=== PATIENT | male | born 1960 | race Caucasian/White ===

== ENCOUNTER 2017-06-01 07:57 | Day surgery (SDC) | payer OTHER ==
--- NOTE | 2017-05-25 19:51 | HP ---
PREOPERATIVE HISTORY AND PHYSICAL: DATE OF SURGERY/ADMISSION: 06/01/17 DATE OF OFFICE VISIT/ENCOUNTER: 05/17/17 ATTENDING SURGEON: Korina Degroot MD * (DICTATED BY PABLO SEGURA) PROCEDURE: Right ring finger trigger finger release. CHIEF COMPLAINT: Right ring finger triggering. HISTORY OF PRESENT ILLNESS: This is a 56-year-old male who complains of triggering and locking of the right ring finger for over a year now. He gets regular catching and clicking and often times, his finger is actually locked in a flex position particularly in the morning. It is quite painful for him to return it to an extended position. He has had a couple of cortisone injections over this past year, which were helpful; however, the symptoms invariably returned. At this point, he is looking for a more permanent solution for this problem and has consented to proceed with a right ring finger trigger finger release. PAST MEDICAL HISTORY: 1. Hypercholesterolemia. 2. Hiatal hernia. PAST SURGICAL HISTORY: 1. Rhinoplasty. 2. Vasectomy. 3. LASIK surgery. CURRENT MEDICATIONS: 1. Claritin 10 mg daily p.r.n. 2. Fish oil 12,000 mg daily. 3. Glucosamine chondroitin twice a day. 4. Simvastatin 40 mg daily. 5. Tylenol p.r.n. pain. 6. Vitamin C 500 mg 1 tab every day. 7. Vitamin D. ALLERGIES: NSAIDs cause uvula swelling. FAMILY MEDICAL HISTORY: Diabetes and hypertension. SOCIAL HISTORY: The patient is an automated optical inspection cuprous chloride operator. He denies tobacco use and recreational drug use. He does drink alcohol on regular occasion. REVIEW OF SYSTEMS: General: Negative for fevers, chills, or night sweats. No known anesthesia problems. HEENT: Negative for headache, lightheadedness, or syncopal episodes. Integumentary: Negative for abrasions, lesions, or open wounds. Cardiothoracic: Negative for hypertension, chest pain, palpitations, or edema. Pulmonary: Negative for shortness of breath with exertion, chronic cough, COPD. GI: Negative for nausea, vomiting, diarrhea, constipation, and GERD. : Negative for nocturia, urinary frequency, urgency, history of UTIs, and kidney problems. Musculoskeletal: Positive for current complaint. Neurological: Negative for paresthesias, numbness, history of seizure, stroke, or epilepsy. Endocrine: Negative for diabetes and thyroid issues. Hematologic : Negative for easy bruising, anemia, excessive bleeding, history of DVT. Infectious Disease: Negative for history of MRSA, hepatitis C, HIV. PHYSICAL EXAMINATION GENERAL: Well-developed, well-nourished 56-year-old male in no acute distress. VITAL SIGNS: Height 6 feet 2 inches, weight 233 pounds, pulse rate 88, blood pressure 142/82. HEENT: Normocephalic, atraumatic. Pupils are equal, round, and reactive to light and accommodation. Extraocular movements are intact. Throat is clear. NECK: Supple. No palpable lymph nodes. PULMONARY: Lungs are clear to auscultation bilaterally. No wheezes, rales, or rhonchi. CARDIOVASCULAR: Regular rate and rhythm. S1, S2. No murmurs, rubs, or gallops. No edema. ABDOMEN: Positive bowel sounds. Soft, nontender. NEUROLOGICAL: Alert and oriented x3. Cranial nerves II through XII are intact. Sensation is intact to light touch. MUSCULOSKELETAL: On exam of his right hand, he has no visible swelling, but he has tenderness to palpation at the A1 anny of the right ring finger. He has difficulty fully flexing the finger into a tight fist and has triggering as he returns it to an extended position and this is quite painful for him. Neurovascular function is intact. IMPRESSION: Right ring finger trigger finger. PLAN: The patient is scheduled to undergo a right ring finger trigger finger release with Dr. Degroot on 06/01/17. He will return to the office 10 days postop for followup and suture removal. A prescription for Ultracet was e- scribed to the patient's pharmacy for postoperative pain management. PABLO SEGURA [id number]/[facility] #: [id number] WILLIAN
[~2017-06-01 07:57] MED LIST: Buffered Lidocaine 0.9% SYRIN* 5 ML/SYR SYRINGE INTRADERM ONE
[2017-06-01] MEDS ORDERED: Lidocaine 1% INJ* 10 MG/ML 30 ML SDV ONE (08:19)
[2017-06-01] MEDS ORDERED: Naloxone* 0.4 MG/ML 1 ML VIAL IV PRN (09:00)
[2017-06-01] MEDS ORDERED: Midazolam* 1 MG/ML 2 ML VIAL (2 MG) ONE (09:18)
[2017-06-01] MEDS ORDERED: fentaNYL* 50 MCG/ML 2 ML VIAL (100 MCG VIAL) ONE (09:18)
[2017-06-01] MEDS ORDERED: Propofol* 10 MG/ML 20 ML BTL IV PUSH ONE (09:18)
[2017-06-01 09:48] VITALS: BP 127/74
--- NOTE | 2017-06-01 21:13 | OP ---
DATE OF OPERATION: 06/01/17 [facility] DATE OF : 64 SURGEON: Korina Degroot MD MOLD CONSTRUCTION SUPERVISOR: PABLO Mane ANESTHESIA: Local MAC PRE-OP DIAGNOSIS: Right ring finger trigger finger. POST-OP DIAGNOSIS: Right ring finger trigger finger. OPERATIVE PROCEDURE: Right ring finger trigger release. ESTIMATED BLOOD LOSS: Zero. TOURNIQUET TIME: 5 minutes. INDICATIONS FOR PROCEDURE: Gómez is a 56-year-old man with locking and clicking of his right ring finger. He has failed conservative treatment and presents for ring finger trigger release. DESCRIPTION OF PROCEDURE: The patient was brought to the operating room, was given a sedation anesthetic and a local infiltration of 10 cc of 1% plain lidocaine in the palm of his right hand. The skin of his right hand and forearm was prepped and draped in the usual sterile fashion. The hand and forearm were exsanguinated and the tourniquet elevated to 250 mmHg. A transverse incision was made, centered over the A1 anny of the right ring finger. We dissected bluntly through the subcutaneous tissue. The digital neurovascular bundles were retracted by the rn surgical, Marti Campbell. The A1 anny was incised longitudinally completely releasing the tendons, which were in good condition. The wound was irrigated and the skin edges reapproximated with 4-0 nylon suture. The wound was dressed with Xeroform, 4x4 , Webril, and an Malcom wrap. The patient tolerated the procedure well and was brought to the recovery room in good condition. [id number]/[facility] #: [id number] MTDD
== END 2017-06-01 10:09 | disposition home or self-care (01) ==
LOC: OREAST 07:57
PROVIDERS: ATTEND Orthopaedic Surgery
DX: M65.341 Trigger finger, right ring finger (principal); E78.00 Pure hypercholesterolemia, unspecified
CPT/HCPCS: J2250; J2704; J3010